=== PATIENT | female | born 1985 | race African-American/Black ===

== ENCOUNTER 2016-11-21 13:08 | Emergency (ER) | payer MEDICAID ==
[~2016-11-21] VITALS: Ht 170.2 cm; Wt 84.9 kg
[~2016-11-21 13:08] MED LIST: ALBU8I INH; EPIP0.3I IM
[2016-11-21 13:14] VITALS: BP 111/77; PULSE 87; RESP 16; TEMP 98.6; O2SAT 100
[2016-11-21] MEDS ORDERED: VENTAER INH (13:25)
[2016-11-21] MEDS ORDERED: ADDE15TA PO (13:25)
[2016-11-21] MEDS ORDERED: DEPA500T PO (13:25)
[2016-11-21] MEDS ORDERED: BENZ100 PO (13:32)
[2016-11-21] MEDS ORDERED: MAGICPED SWISH-SWAL (13:32)
--- NOTE | 2016-11-21 13:32 | PD ---
HPI Chief Complaint: ENT Complaint Time Seen by Provider: 13:28 Travel History International Travel<30 days: No Contact w/Intl Traveler<30days: No Traveled to known affect area: No History of Present Illness HPI Patient is a 31-year-old female presenting to complaining of sore throat. Present for 2 days. She is also had some anterior lymphadenopathy bilaterally and some right ear pain without otorrhea or hearing loss. She endorses bilateral nasal congestion. She's had a slight dry cough without chest pain, dyspnea or wheezing or sputum production. Denies fevers abdominal pain and excessive fatigue. No attempts at palliation. Denies current . PFSH Past Medical History Hx Anticoagulant Therapy: No ADD: Yes Asthma: Yes Cardiovascular Problems: No Chemotherapy: No Cerebrovascular Accident: No Diabetes: No Diminished Hearing: No Respiratory: Yes (asthma) Immunizations Current: Yes ?: Not LMP: 11/11/16 Past Surgical History Hysterectomy: No Social History Alcohol Use: No Tobacco Use: No Substance Use: No Allergies-Medications (Allergen,Severity, Reaction): Coded Allergies: Nut Tree (Verified Allergy, Severe, SWELLING ALL OVER, 11/21/16) PEANUTS (Verified Allergy, Severe, Anaphylaxis, 11/21/16) Reported Meds & Prescriptions Reported Meds & Active Scripts Active Magic Mouthwash Pediatric/Adult Liq (Lidocaine/Diphenhydr/Alum/Mg/Simeth) 60 Ml Susp 10 Ml SWISH-SWAL ACHS Each 5 mL contains: Diphenydramine 4.5 mg,Viscous Lidocaine 2% 10 mg, Maalox Advanced Regular Strength 2.7 ml (Aluminum hydroxide 108 mg, Magnesium hydroxide 108 mg and Simethicone 10.8 mg) Tessalon Perles (Benzonatate) 100 Mg Cap 100-200 Mg PO TID PRN Reported Depakote DR (Divalproex Sodium) 500 Mg Tabdr 700 Mg PO DAILY Adderall (Amphetamine-Dextroamphetamine) 15 Mg Tab 15 Mg PO DAILY Avoid late evening doses. Space doses at least 4 to 6 hours if more than once/day dosing. Ventolin Hfa 18 GM Inh (Albuterol Sulfate) 90 Mcg/Act Aer 1 Puff INH Q4H PRN Review of Systems Except as stated in HPI: all other systems reviewed are Neg Physical Exam Narrative GENERAL: Well-developed and well-nourished adult female in no acute distress. SKIN: Warm and dry. Good turgor without tenting. HEAD: Normocephalic and atraumatic. EYES: PERRL bilaterally, 5mm. EOMI bilaterally. No injection or icterus present. No proptosis. Lids without edema or erythema. ENT: Bilateral ear canals are non-edematous/non-erythematous without otorrhea. Bilateral TMs have intact landmarks and without distortion, perforation, air- fluid level or erythema. Nasal mucosa pink edematous without discharge, septum intact and midline. Buccal mucosa pink and moist. Oropharynx reveals mild tonsillar erythema without, tonsillar hypertrophy, masses, swelling, asymmetry and exudates. Uvula congenitally absent. NECK: Supple, no meningeal signs. Trachea midline, no JVD. Bilateral anterior cervical lymphadenopathy approximately 1.1.5 centimeters each, mobile and tender. No posterior cervical, facial or supraclavicular lymphadenopathy. CARDIOVASCULAR: Regular rate and rhythm without murmurs, rubs, clicks or gallops. RESPIRATORY: Clear to auscultation bilaterally with symmetrical rise and fall, no distress or use of accessory muscles. Speaks in full sentences. No stridor , tripoding or drooling. GASTROINTESTINAL: Non-tender, non-distended. Normal bowel sounds all 4 quadrants. No masses or organomegaly present. MUSCULOSKELETAL: No gait disturbances. Patient freely moving all four extremities spontaneously. Extremities without clubbing, cyanosis, or edema. No obvious deformities. NEUROLOGIC: CN II-XII grossly intact. Awake and alert. Motor grossly within normal limits. Normal speech. PSYCHIATRIC: Appropriate mood and affect; insight and judgment normal. Data Data Last Documented VS Vital Signs Date Time Temp Pulse Resp B/P Pulse Ox O2 Delivery O2 Flow Rate FiO2 11/21/16 13:14 98.6 87 16 111/77 100 Orders Group A Rapid Strep Screen (11/21/16 13:28) Influenzae A/B Antigen (11/21/16 13:28) Strep Culture (Group A) (11/21/16 13:35) MDM Medical Decision Making Medical Screen Exam Complete: Yes Emergency Medical Condition: Yes Interpretation(s) Date/Time Procedure Status Source Growth 11/21/16 13:35 Group A Streptococcus Screen (MANNIE) - Final Complete Throat 11/21/16 13:35 Influenza Types A,B Antigen (MANNIE) - Final Complete Nasal Washing NEGATIVE FOR FLU A AND B ANTIGEN.... 11/21/16 13:35 Group A Streptococcus Screen Received Throat Pending Differential Diagnosis Viral pharyngitis versus strep pharyngitis versus viral syndrome versus peritonsillar abscess unlikely Narrative Course Patient is a 31-year-old afebrile and nontoxic-appearing female today history of sore throat. She has a slight dry cough and other symptoms suggesting a viral etiology. There is some minor erythema of the oropharynx without signs of abscess or exudate. There is anterior cervical lymphadenopathy present bilaterally. Cerebellar rapid strep and influenza test which were negative. Patient was given prescription for Tessalon Perles and Magic mouthwash and recommend homecare measures including rest and encouraging fluids.See discharge paperwork for further instructions. The plan was discussed with the patient who acknowledged their understanding and agreement. Reinforced the follow-up with primary care is critically important. Patient instructed on emergent conditions that should prompt return to ED. Diagnosis Primary Impression: Pharyngitis Qualified Code: J02.9 - Pharyngitis, unspecified etiology Additional Impression: Viral syndrome Patient Instructions: General Instructions, Pharyngitis (ED) Departure Forms: Tests/Procedures, Work Release Enter return to work date: Nov 23, 2016 Additional Instructions: Take medication as prescribed OTC Mucinex, cough suppressants, and decongestants as needed OTC Tylenol or Ibuprofen for fever and discomfort Drink lots of fluid to help clear mucous/drainage and stay hydrated Follow up with PCP in 2 days Return to the ED for any acute worsening of symptoms Med/Other Pt SpecificInfo: Prescription(s) given Scripts Kdhlodffrlppjfm-Fgbzlrvlz-Lpf-Alum-Simeth Liq (Magic Mouthwash Pediatric/Adult Liq)60 Ml Susp10 Ml SWISH-SWAL ACHS #120 ML Each 5 mL contains: Diphenydramine 4.5 mg,Viscous Lidocaine 2% 10 mg, Maalox Advanced Regular Strength 2.7 ml (Aluminum hydroxide 108 mg, Magnesium hydroxide 108 mg and Simethicone 10.8 mg) Prov:Bonny Carpenter MD 11/21/16 Benzonatate (Tessalon Perles)100 Mg [id number] Mg PO TID PRN (COUGH) #20 CAP Prov:Bonny Carpenter MD 11/21/16 Disposition: 01 DISCHARGE HOME Condition: Stable Krogh,Didier III PA Nov 21, 2016 13:31
== END 2016-11-21 14:38 | disposition home or self-care (01) ==
LOC: PHEFT 13:08
DX: J02.9 Acute pharyngitis, unspecified (principal); B34.9 Viral infection, unspecified; H92.01 Otalgia, right ear; R59.9 Enlarged lymph nodes, unspecified; J45.909 Unspecified asthma, uncomplicated
CPT/HCPCS: 87081; 87804; 87880; 99283

== ENCOUNTER 2017-03-05 21:32 | Emergency (ER) | payer MEDICAID ==
[~2017-03-05] VITALS: Ht 175.3 cm; Wt 85.6 kg
[~2017-03-05 21:32] MED LIST changes: +ADDE15TA PO; -ALBU8I INH; +BENZ100 PO; +DEPA500T PO; -EPIP0.3I IM; +MAGICPED SWISH-SWAL; +VENTAER INH
[2017-03-05 22:09] VITALS: BP 144/99; PULSE 79; RESP 16; TEMP 98.5; O2SAT 100
[2017-03-05] MEDS ORDERED: KETOROLAC TROMETHAMINE 30 MG/ML (IVP) VIAL IV PUSH ONE (22:30)
[2017-03-05] MEDS ORDERED: SODIUM CHLORIDE 0.9% FLUSH 10 ML FLUSH IVF PRN (22:30)
[2017-03-05 22:43] VITALS: RESP 18; O2SAT 100
[2017-03-05 23:14] LABS: AUTOMATED NEUTROPHIL # 3.4 TH/MM3 (1.8-7.7); BASOPHIL # 0.1 TH/MM3 (0-0.2); BASOPHIL % 0.7 % (0.0-2.0); EOSINOPHIL # 0.2 TH/MM3 (0-0.4); EOSINOPHIL % 3.2 % (0.0-4.0); HEMATOCRIT 38.7 % (35.0-46.0); HEMO FLAGS DIFF FINAL; LYMPH % 45.2 % (9.0-44.0); LYMPHOCYTE # 3.3 TH/MM3 (1.0-4.8); MEAN CELL VOLUME 86.7 FL (80.0-100.0); MEAN CORPUSCULAR HEMOGLOBIN 29.8 PG (27.0-34.0); MEAN CORPUSCULAR HGB CONC 34.3 % (32.0-36.0); MONO % 4.7 % (0.0-8.0); NEUT % 46.2 % (16.0-70.0); PLATELET COUNT 282 TH/MM3 (150-450); RED BLOOD COUNT 4.46 MIL/MM3 (4.00-5.30); RED CELL DISTRIBUTION WIDTH 12.4 % (11.6-17.2); WHITE BLOOD COUNT 7.3 TH/MM3 (4.0-11.0)
[2017-03-05 23:17] LABS: BLOOD, URINE LARGE (NEG); GLUCOSE,URINE NEG (NEG); KETONE, URINE TRACE mg/dL (NEG); NITRITE,URINE NEG (NEG); PH, URINE 7.5 (5.0-8.5)
[2017-03-05 23:22] LABS: POTASSIUM 3.7 MEQ/L (3.5-5.1)
[2017-03-05 23:23] LABS: BACTERIA, URINE RARE /hpf; COMMENT (UR) CULT NOT INDICATED; CULTURE IF INDICATED CULT NOT INDICATED; URINE COLOR YELLOW (YELLW/STRAW); WBC, URINE 0-2 /hpf (0-5)
[2017-03-05 23:26] LABS: BICARBONATE 31.5 MEQ/L (21.0-32.0)
--- NOTE | 2017-03-05 23:39 | RADHPO ---
EXAM DATE/TIME: 03/05/2017 23:06 [facility] COMPARISON: No previous studies available for comparison. INDICATIONS : Headache for three days. Pain behind the right eye. RADIATION DOSE: 60.12 CTDIvol (mGy) MEDICAL HISTORY : None SURGICAL HISTORY : None. ENCOUNTER: Initial ACUITY: 3 days PAIN SCALE: 7/10 LOCATION: cranial TECHNIQUE: Multiple contiguous axial images were obtained of the head. Using automated exposure control and adj ustment of the mA and/or kV according to patient size, radiation dose was kept as low as reasonably a chievable to obtain optimal diagnostic quality images. FINDINGS: CEREBRUM: The ventricles are normal for age. No evidence of midline shift, mass lesion, hemorrhage or acute in farction. No extra-axial fluid collections are seen. POSTERIOR FOSSA: The cerebellum and brainstem are intact. The 4th ventricle is midline. The cerebellopontine angle i s unremarkable. EXTRACRANIAL: The visualized portion of the orbits is intact. SKULL: The calvaria is intact. No evidence of skull fracture. CONCLUSION: Normal examination. Jay Mccracken Jr., MD on March 05, 2017 at 23:37 Board Certified Radiologist. This report was verified electronically.
--- NOTE | 2017-03-06 00:07 | PD ---
HPI Chief Complaint: Headache Time Seen by Provider: 22:23 Travel History International Travel<30 days: No Contact w/Intl Traveler<30days: No Traveled to known affect area: No History of Present Illness HPI 32-year-old female presents to the emergency department for complaint of headache 3 days. Patient states headache gradual in onset and has had similar headaches in the past that typically resolve with chiropractic manipulation. Patient states she's had manipulation without symptomatic relief and has used ibuprofen without relief so decided to come to the emergency room for evaluation. Patient denies any injury or trauma. Patient denies any fever chills sinus pressure drainage sore throat earache neck pain chest pain cough shortness of breath nausea vomiting diarrhea flank pain dysuria frequency or urgency or . Patient without family history of subarachnoid hemorrhage or headaches. Elderly grandparents have had stroke. Patient does take control pills and rarely smokes cigarettes. Patient denies any visual disturbance change in mentation difficulty with speech or ataxia of her or lower extremity numbness tingling or weakness. Patient's had no chest pain palpitations shortness of breath or pleuritic pain. Patient is unable to identify exacerbating or alleviating factors. Presently PFSH Past Medical History Narrative Medical ADD asthma headaches; no surgery; no tobacco use; nursing notes reviewed Hx Anticoagulant Therapy: No ADD: Yes Asthma: Yes Cardiovascular Problems: No Chemotherapy: No Cerebrovascular Accident: No Diabetes: No Diminished Hearing: No Respiratory: Yes (asthma) Immunizations Current: Yes Tetanus Vaccination: < 5 Years Influenza Vaccination: No ?: Not LMP: PAST WED Past Surgical History Hysterectomy: No Social History Alcohol Use: No Tobacco Use: No Substance Use: No Allergies-Medications (Allergen,Severity, Reaction): Coded Allergies: Nut Tree (Verified Allergy, Severe, SWELLING ALL OVER, 03/05/17) PEANUTS (Verified Allergy, Severe, Anaphylaxis, 03/05/17) Reported Meds & Prescriptions Reported Meds & Active Scripts Active No Active Prescriptions or Reported Medications Review of Systems Except as stated in HPI: all other systems reviewed are Neg General / Constitutional: No: Fever, Chills Eyes: No: Diploplia, Blurred Vision, Photophobia HENT: Positive: Headaches, No: Vertigo, Neck Pain Cardiovascular: No: Chest Pain or Discomfort Gastrointestinal: No: Nausea, Vomiting, Diarrhea, Abdominal Pain Genitourinary: No: Flank Pain Musculoskeletal: No: Myalgias, Arthralgias Skin: No Rash Neurologic: No: Weakness, Dizziness, Syncope Psychiatric: No: Anxiety Hematologic/Lymphatic: No: Easy Bruising Physical Exam Narrative GENERAL: Well-developed well-nourished female in no acute distress no respiratory distress SKIN: Warm and dry. HEAD: Atraumatic. Normocephalic. EYES: Pupils equal and round. No scleral icterus. No injection or drainage. Funduscopic exam no papilledema ENT: No nasal bleeding or discharge. Mucous membranes pink and moist. NECK: Trachea midline. No JVD. CARDIOVASCULAR: Regular rate and rhythm. RESPIRATORY: No accessory muscle use. Clear to auscultation. Breath sounds equal bilaterally. GASTROINTESTINAL: Abdomen soft, non-tender, nondistended. Hepatic and splenic margins not palpable. MUSCULOSKELETAL: Extremities without clubbing, cyanosis, or edema. No obvious deformities. NEUROLOGICAL: Awake and alert. No obvious cranial nerve deficits. Motor grossly within normal limits. Five out of 5 muscle strength in the arms and legs. No limb ataxia. Normal sensation as tested . No pronator drift. DTRs 2 + and equal. Normal speech. PSYCHIATRIC: Appropriate mood and affect; insight and judgment normal. Data Data Last Documented VS Vital Signs Date Time Temp Pulse Resp B/P Pulse Ox O2 Delivery O2 Flow Rate FiO2 03/06/17 00:23 82 18 98 03/06/17 00:22 130/84 Room Air 03/05/17 22:09 98.5 Orders Complete Blood Count With Diff (03/05/17 22:23) Basic Metabolic Panel (Bmp) (03/05/17 22:23) Ct Brain W/O Iv Contrast(Rout) (03/05/17 22:23) Ecg Monitoring (03/05/17 22:23) Iv Access Insert/Monitor (03/05/17 22:23) Oximetry (03/05/17 22:23) Sodium Chloride 0.9% Flush (Ns Flush) (03/05/17 22:30) Urinalysis - C+S If Indicated (03/05/17 22:23) Ed Urine Pregnancytest Poc (03/05/17 22:23) Ketorolac Inj (Toradol Inj) (03/05/17 22:30) Labs Laboratory Tests Test 03/05/17 03/05/17 22:50 23:00 Urine Color YELLOW Urine Turbidity CLEAR Urine pH 7.5 Urine Specific [place] 1.020 Urine Protein TRACE mg/dL Urine Glucose (UA) NEG mg/dL Urine Ketones TRACE mg/dL Urine Occult Blood LARGE Urine Nitrite NEG Urine Bilirubin NEG Urine Leukocyte Esterase NEG Urine RBC 20-24 /hpf Urine WBC 0-2 /hpf Urine Squamous Epithelial 6-8 /hpf Cells Urine Bacteria RARE /hpf Microscopic Urinalysis Comment CULT NOT INDICATED White Blood Count 7.3 TH/MM3 Red Blood Count 4.46 MIL/MM3 Hemoglobin 13.3 GM/DL Hematocrit 38.7 % Mean Corpuscular Volume 86.7 FL Mean Corpuscular Hemoglobin 29.8 PG Mean Corpuscular Hemoglobin 34.3 % Concent Red Cell Distribution Width 12.4 % Platelet Count 282 TH/MM3 Mean Platelet Volume 8.4 FL Neutrophils (%) (Auto) 46.2 % Lymphocytes (%) (Auto) 45.2 % Monocytes (%) (Auto) 4.7 % Eosinophils (%) (Auto) 3.2 % Basophils (%) (Auto) 0.7 % Neutrophils # (Auto) 3.4 TH/MM3 Lymphocytes # (Auto) 3.3 TH/MM3 Monocytes # (Auto) 0.3 TH/MM3 Eosinophils # (Auto) 0.2 TH/MM3 Basophils # (Auto) 0.1 TH/MM3 CBC Comment DIFF FINAL Differential Comment Sodium Level 142 MEQ/L Potassium Level 3.7 MEQ/L Chloride Level 105 MEQ/L Carbon Dioxide Level 31.5 MEQ/L Anion Gap 6 MEQ/L Blood Urea Nitrogen 9 MG/DL Creatinine 0.98 MG/DL Estimat Glomerular Filtration 79 ML/MIN Rate Random Glucose 89 MG/DL Calcium Level 8.7 MG/DL [facility] Medical Decision Making Medical Screen Exam Complete: Yes Emergency Medical Condition: Yes Medical Record Reviewed: Yes Interpretation(s) Last Impressions Head CT 03/05/172222 Signed Impressions: Service Date/Time: Sunday, March 05, 2017 23:06 - CONCLUSION: Normal examination. Jay Mccracken Jr., MD CBC & BMP Diagram 03/05/17 23:00 Differential Diagnosis Cephalgia migraine versus tension versus vascular versus infectious versus allergen precipitated/inflammatory, viral syndrome, rhinosinusitis Narrative Course IV access obtained specimens collected and sent for resulting CT brain noncontrast ordered [id number] hCG negative Lab values found to be in normal range Patient received IV fluids along with Toradol [address] brain noncontrast read as normal for patient's age patient clinically improved and stable for outpatient management encouraged to follow-up with her primary care provider Diagnosis Primary Impression: Cephalgia Referrals: Primary Care Physician call for appointment Patient Instructions: General Instructions Additional Instructions: Increase fluid hydration follow-up with primary care provider May continue to use ibuprofen/ Advil/Motrin 800 mg as often as every 8 hours for pain associated inflammation for fever 100.4F or greater May use acetaminophen/Tylenol as often as every 4-6 hours as needed for fever 100.4F or greater or for minor pain Return to the emergency department for any concerns or change condition Scripts No Active Prescriptions or Reported Meds Disposition: 01 DISCHARGE HOME Condition: Stable Denise Nye MD Mar 06, 2017 00:07
[2017-03-06 00:22] VITALS: BP 130/84; PULSE 82; RESP 18; O2SAT 98
== END 2017-03-06 00:24 | disposition home or self-care (01) ==
LOC: PHED 21:32
DX: R51 Headache (principal); Z86.59 Personal history of other mental and behavioral disorders; Z87.09 Personal history of other diseases of the respiratory system
CPT/HCPCS: 70450; 80048; 81001; 84703; 85025; 96374; 99284; J1885

== ENCOUNTER 2017-05-17 18:56 | Emergency (ER) | payer MEDICAID ==
[~2017-05-17] VITALS: Ht 170.2 cm; Wt 88.7 kg
[2017-05-17 18:59] VITALS: BP 129/80; PULSE 120; RESP 22; TEMP 100.1; O2SAT 100
[2017-05-17 19:16] VITALS: BP 148/76; PULSE 123; RESP 30; O2SAT 100
[2017-05-17] MEDS ORDERED: ADDE25CA PO (19:16)
[2017-05-17] MEDS ORDERED: VENTAER INH (19:24)
--- NOTE | 2017-05-17 19:51 | PD ---
HPI Chief Complaint: Cold / Flu Symptoms Time Seen by Provider: 19:28 Travel History International Travel<30 days: No Contact w/Intl Traveler<30days: No Traveled to known affect area: No History of Present Illness HPI This patient complains of cough and congestion and body aches and low-grade fevers. Her son has the same symptoms. Severity is moderate. No alleviating factors. Denies vomiting or diarrhea. Duration 2 days PFSH Past Medical History Hx Anticoagulant Therapy: No ADD: Yes Asthma: Yes Cardiovascular Problems: No Chemotherapy: No Cerebrovascular Accident: No Diabetes: No Diminished Hearing: No Respiratory: Yes (ashtma) Immunizations Current: Yes Tetanus Vaccination: < 5 Years Influenza Vaccination: No ?: Not LMP: 04-28-17 Past Surgical History Hysterectomy: No Other Surgery: Yes (hemmroid removal) Social History Alcohol Use: No Tobacco Use: No Substance Use: No Allergies-Medications (Allergen,Severity, Reaction): Coded Allergies: Nut Tree (Verified Allergy, Severe, SWELLING ALL OVER, 05/17/17) PEANUTS (Verified Allergy, Severe, Anaphylaxis, 05/17/17) Reported Meds & Prescriptions Reported Meds & Active Scripts Active Reported Ventolin Hfa 18 GM Inh (Albuterol Sulfate) 90 Mcg/Act Aer 1 Puff INH Q4H PRN Adderall Xr 24 HR (Amphetamine-Dextroamphetamine ER 24 HR) 25 Mg Cap 25 Mg PO DAILY Once daily in the morning. Review of Systems General / Constitutional: Positive: Fever Eyes: No: Visual changes HENT: Positive: Congestion, No: Headaches Cardiovascular: No: Chest Pain or Discomfort Respiratory: Positive: Cough, No: Shortness of Breath Gastrointestinal: No: Abdominal Pain Genitourinary: No: Dysuria Musculoskeletal: Positive: Myalgias, No: Pain Skin: No Rash Neurologic: No: Weakness Psychiatric: No: Depression Endocrine: No: Polydipsia Hematologic/Lymphatic: No: Easy Bruising Physical Exam Narrative GENERAL: Well-nourished, well-developed patient with cough and myalgias . SKIN: Focused skin assessment reveals no rash and nodules. Skin is Warm and dry. HEAD: Atraumatic. Normocephalic. EYES: Pupils equal and round. No scleral icterus. No injection or drainage. ENT: No nasal bleeding or discharge. Mucous membranes pink and moist. Throat clear NECK: Trachea midline. No JVD. No meningeal signs CARDIOVASCULAR: Regular rate and rhythm. No murmur appreciated. Tachycardic without ectopy, initial heart rate 120 RESPIRATORY: No accessory muscle use. Clear to auscultation. Breath sounds equal bilaterally. GASTROINTESTINAL: Abdomen soft, non-tender, nondistended. Hepatic and splenic margins not palpable. MUSCULOSKELETAL: No obvious deformities. No clubbing. No cyanosis. No edema. NEUROLOGICAL: Awake and alert. No obvious cranial nerve deficits. Motor grossly within normal limits. Normal speech. PSYCHIATRIC: Appropriate mood and affect; insight and judgment normal. Data Data Last Documented VS Vital Signs Date Time Temp Pulse Resp B/P Pulse Ox O2 Delivery O2 Flow Rate FiO2 05/17/17 19:18 Nasal Cannula 2 05/17/17 19:16 123 30 148/76 100 05/17/17 18:59 100.1 Orders Sodium Chlor 0.9% 1000 Ml Inj (Ns 1000 M (05/17/17 20:00) Acetaminophen (Tylenol) (05/17/17 20:00) Ibuprofen (Motrin) (05/17/17 20:00) Iv Access Insert/Monitor (05/17/17 19:47) Complete Blood Count With Diff (05/17/17 19:47) Basic Metabolic Panel (Bmp) (05/17/17 19:47) Labs Laboratory Tests Test 05/17/17 20:16 White Blood Count 9.4 TH/MM3 Red Blood Count 4.29 MIL/MM3 Hemoglobin 12.4 GM/DL Hematocrit 37.5 % Mean Corpuscular Volume 87.3 FL Mean Corpuscular Hemoglobin 28.8 PG Mean Corpuscular Hemoglobin 33.0 % Concent Red Cell Distribution Width 12.5 % Platelet Count 265 TH/MM3 Mean Platelet Volume 8.8 FL Neutrophils (%) (Auto) 91.1 % Lymphocytes (%) (Auto) 5.1 % Monocytes (%) (Auto) 1.7 % Eosinophils (%) (Auto) 1.4 % Basophils (%) (Auto) 0.7 % Neutrophils # (Auto) 8.5 TH/MM3 Lymphocytes # (Auto) 0.5 TH/MM3 Monocytes # (Auto) 0.2 TH/MM3 Eosinophils # (Auto) 0.1 TH/MM3 Basophils # (Auto) 0.1 TH/MM3 CBC Comment DIFF FINAL Differential Comment Sodium Level 140 MEQ/L Potassium Level 3.2 MEQ/L Chloride Level 103 MEQ/L Carbon Dioxide Level 25.0 MEQ/L Anion Gap 12 MEQ/L Blood Urea Nitrogen 9 MG/DL Creatinine 1.00 MG/DL Estimat Glomerular Filtration 77 ML/MIN Rate Random Glucose 94 MG/DL Calcium Level 8.7 MG/DL MDM Medical Decision Making Medical Screen Exam Complete: Yes Emergency Medical Condition: Yes Medical Record Reviewed: Yes Differential Diagnosis Flu syndrome, bronchitis, pneumonia Narrative Course I have reviewed the patient's electronic medical record. Patient is a frequent visitor often with minor complaints IV placed I gave her 1 L normal saline IV I gave her Tylenol and Motrin CBC is normal Metabolic profile shows minor hypokalemia otherwise normal Patient is no meningeal signs. No indication for antibiotic therapy. Presentation seems most consistent with acute viral syndrome She has clear lungs with 100% room air saturations The patient was advised to follow up with their physician and return if they worsen. Diagnosis Primary Impression: Viral syndrome Additional Instructions: The patient was advised to follow up with their physician and return if they worsen. Med/Other Pt SpecificInfo: Other Disposition: 01 DISCHARGE HOME Condition: Stable Aldair Partida MD May 17, 2017 19:51
[2017-05-17] MEDS ORDERED: SODIUM CHLOR 0.9% 1000 ML INJ 1,000 ML IV ONE (20:00)
[2017-05-17] MEDS ORDERED: ACETAMINOPHEN 500 MG CPLT PO ONE (20:00)
[2017-05-17] MEDS ORDERED: IBUPROFEN 600 MG TAB PO ONE (20:00)
[2017-05-17 20:22] LABS: AUTOMATED NEUTROPHIL # 8.5 TH/MM3 (1.8-7.7); BASOPHIL # 0.1 TH/MM3 (0-0.2); BASOPHIL % 0.7 % (0.0-2.0); EOSINOPHIL # 0.1 TH/MM3 (0-0.4); EOSINOPHIL % 1.4 % (0.0-4.0); HEMATOCRIT 37.5 % (35.0-46.0); LYMPH % 5.1 % (9.0-44.0); LYMPHOCYTE # 0.5 TH/MM3 (1.0-4.8); MEAN CELL VOLUME 87.3 FL (80.0-100.0); MEAN CORPUSCULAR HEMOGLOBIN 28.8 PG (27.0-34.0); MONO % 1.7 % (0.0-8.0); NEUT % 91.1 % (16.0-70.0); PLATELET COUNT 265 TH/MM3 (150-450); RED BLOOD COUNT 4.29 MIL/MM3 (4.00-5.30); RED CELL DISTRIBUTION WIDTH 12.5 % (11.6-17.2); WHITE BLOOD COUNT 9.4 TH/MM3 (4.0-11.0)
[2017-05-17 20:29] LABS: HEMO FLAGS DIFF FINAL
[2017-05-17 20:31] LABS: POTASSIUM 3.2 MEQ/L (3.5-5.1)
[2017-05-17 20:53] VITALS: PULSE 117; RESP 20; TEMP 100.3; O2SAT 99
[2017-05-17 21:02] VITALS: RESP 20
== END 2017-05-17 21:05 | disposition home or self-care (01) ==
LOC: PHED 18:56
DX: B34.9 Viral infection, unspecified (principal); J45.909 Unspecified asthma, uncomplicated
CPT/HCPCS: 80048; 85025; 96360; 99284; J7030

== ENCOUNTER 2017-05-24 08:22 | Emergency (ER) | payer MEDICAID ==
[~2017-05-24] VITALS: Ht 170.2 cm; Wt 86.0 kg
[~2017-05-24 08:22] MED LIST changes: -ADDE15TA PO; +ADDE25CA PO; -BENZ100 PO; -DEPA500T PO; -MAGICPED SWISH-SWAL
[2017-05-24 08:27] VITALS: BP 120/79; PULSE 88; RESP 16; TEMP 98.1; O2SAT 100
[2017-05-24] MEDS ORDERED: BACT800T5 PO (08:58)
--- NOTE | 2017-05-24 09:02 | PD ---
HPI Chief Complaint: Skin Problem Time Seen by Provider: 08:33 Travel History International Travel<30 days: No Contact w/Intl Traveler<30days: No Traveled to known affect area: No History of Present Illness HPI This patient complains of a swelling in her right side of neck. Duration one day. Severity is mild to moderate. It's sore but she has no fever or severe pain. Able to talk and swallow and breathe well. No alleviating factors PFSH Past Medical History Hx Anticoagulant Therapy: No ADD: Yes Asthma: Yes Cardiovascular Problems: No Chemotherapy: No Cerebrovascular Accident: No Diabetes: No Diminished Hearing: No Respiratory: Yes (ashtma) Immunizations Current: Yes Tetanus Vaccination: < 5 Years Influenza Vaccination: No ?: Not LMP: 04/28/17 Past Surgical History Hysterectomy: No Other Surgery: Yes (hemmroid removal) Social History Alcohol Use: No Tobacco Use: No Substance Use: No Allergies-Medications (Allergen,Severity, Reaction): Coded Allergies: Nut Tree (Verified Allergy, Severe, SWELLING ALL OVER, 05/24/17) PEANUTS (Verified Allergy, Severe, Anaphylaxis, 05/24/17) Reported Meds & Prescriptions Reported Meds & Active Scripts Active Reported Ventolin Hfa 18 GM Inh (Albuterol Sulfate) 90 Mcg/Act Aer 1 Puff INH Q4H PRN Adderall Xr 24 HR (Amphetamine-Dextroamphetamine ER 24 HR) 25 Mg Cap 25 Mg PO DAILY Once daily in the morning. Review of Systems General / Constitutional: No: Fever HENT: No: Headaches Cardiovascular: No: Chest Pain or Discomfort Respiratory: Positive: Cough Physical Exam Narrative SKIN: Focused skin assessment reveals no rash or ulcers. Skin is warm and dry. Palpation shows no induration or nodules. Throat clear Psych: Normal mood and affect. Normal insight and judgment. Neck: There is some tenderness and swelling of the right submandibular gland. There is no erythema or warmth or fluctuance. No drainage. No neck stiffness. No submental involvement Data Data Last Documented VS Vital Signs Date Time Temp Pulse Resp B/P Pulse Ox O2 Delivery O2 Flow Rate FiO2 05/24/17 08:27 98.1 88 16 120/79 100 MDM Medical Decision Making Medical Screen Exam Complete: Yes Emergency Medical Condition: Yes Medical Record Reviewed: Yes Differential Diagnosis Sialoadenitis, parotitis, salivary duct Stone Narrative Course I have reviewed the patient's electronic medical record. Frequent visitor here for minor complaints I think most likely she has a viral sialoadenitis. Less likely is bacterial. She looks very nontoxic without fever which makes me think viral. She's also had some degree of viral symptomatology such as cough and congestion. However I don't want to have this worsen if it is bacterial so she will get a Bactrim prescription The patient was advised to follow up with their physician and return if they worsen. Diagnosis Primary Impression: Sialoadenitis of submandibular gland Additional Instructions: The patient was advised to follow up with their physician and return if they worsen. Med/Other Pt SpecificInfo: Prescription(s) given Scripts Sulfamethoxazole-Trimethoprim (Bactrim DS)800-160 Mg Tab1 Tab PO BID #14 TAB Ref 0 Prov:Aldair Partida MD 05/24/17 Disposition: 01 DISCHARGE HOME Condition: Stable Aldair Partida MD May 24, 2017 09:02
== END 2017-05-24 09:10 | disposition home or self-care (01) ==
LOC: PHED 08:22
DX: K11.20 Sialoadenitis, unspecified (principal); Z86.59 Personal history of other mental and behavioral disorders; Z87.09 Personal history of other diseases of the respiratory system
CPT/HCPCS: 99283